=== PATIENT | male | born 1995 | race Asian ===

== ENCOUNTER 2019-10-07 14:15 | Emergency (ER) | payer OTHER ==
[~2019-10-07] VITALS: Ht 167.6 cm; Wt 81.7 kg
[2019-10-07] MEDS ORDERED: ACETAMINOPHEN500 MG PO (16:15)
== END 2019-10-07 16:57 | disposition home or self-care (01) ==
LOC: ER 14:15
DX: S09.90XA Unspecified injury of head, initial encounter (principal); H93.12 Tinnitus, left ear; V89.2XXA Person injured in unspecified motor-vehicle accident, traffic, initial encounter
CPT/HCPCS: 70450; 99284-25